=== PATIENT | male | born 1960 | race Caucasian/White ===

== ENCOUNTER 2021-05-30 12:00 | Emergency (ER) | payer BC ==
[~2021-05-30] VITALS: Ht 172.7 cm; Wt 113.4 kg
[2021-05-30] MEDS ORDERED: CAPS1ADH5 TP (12:15)
[2021-05-30] MEDS ORDERED: IBUP-1957 PO (12:15)
--- NOTE | 2021-05-30 12:15 | NUR ---
BIB SELF C/O LOWER BACK PAIN S/P TWISTING WHILE PLAYING VOLLEYBALL LAST NIGHT AND HEARD A POP. PAIN IS RATED 4/10 AND WAS RELIEVED BY IBUPROFEN THIS MORNING. A&OX4. AMBULATORY. NO SWELLING NOTED ON BACK. TENDER TO PALPATION.
[2021-05-30 12:20] VITALS: BP 141/64
--- NOTE | 2021-05-30 12:21 | NUR ---
patient picked up by staff from [facility] in no distress.
== END 2021-05-30 12:21 | disposition home or self-care (01) ==
LOC: ER 12:00
DX: M54.50 Low back pain, unspecified (principal); I10 Essential (primary) hypertension; Z98.890 Other specified postprocedural states; Z79.899 Other long term (current) drug therapy; X50.1XXA Overexertion from prolonged static or awkward postures, initial encounter; Y93.68 Activity, volleyball (beach) (court); Y92.39 Other specified sports and athletic area as the place of occurrence of the external cause; Y99.8 Other external cause status